=== PATIENT | male | born 1965 | race Caucasian/White ===

== ENCOUNTER 2021-07-04 22:21 | Emergency (ER) | payer OTHER ==
[~2021-07-04] VITALS: Ht 182.8 cm; Wt 86.2 kg
[2021-07-04] MEDS ORDERED: AMOXICILLIN500 M2 PO (23:23)
== END 2021-07-05 00:03 | disposition home or self-care (01) ==
LOC: ED 22:21
DX: K02.9 Dental caries, unspecified (principal)